=== PATIENT | female | born 1985 | race African-American/Black ===

== ENCOUNTER 2018-03-21 03:46 | Emergency (ER) | payer MEDICAID ==
[2018-03-21] MEDS ORDERED: LIDOCAINE 2% VISCOUS 15 ML UDCUP PO ONE (04:16)
[2018-03-21] MEDS ORDERED: MAG HYDROX/AL HYDROX/SIMETH 30 ML UDCUP PO ONE (04:16)
--- NOTE | 2018-03-21 04:51 | EDPHY ---
H & P Stated Complaint: Mid abd pain x3 days Time Seen by Provider: 03/21/18 04:09 HPI/ROS: Chief Complaint: Abdominal pain HPI: 32-year-old woman presenting with upper abdominal pain intermittently for the last 3 days. Patient states it is worse when she lays down. Is waking up with a bad taste in the back of her throat. Some nausea but no vomiting. No diarrhea. No dark black tarry stools or blood in her stool. No fevers or chills. She has not taken any medication for this. She does have a history of CVA in the past is on Plavix. Denies any nonsteroidal medication use. There are no aggravating or alleviating factors. ROS: 10 point Review of Systems is negative except as noted in the HPI. PMH: CVA Social History: No smoking, no alcohol, no recreational drug use Family History: non-contributory Physical Exam: Gen: Awake, Alert, No Distress HEENT: Nose: no rhinorrhea Eyes: PERRLA, EOMI Mouth: Moist mucosa Neck: Supple, no JVD Chest: nontender, lungs clear to auscultation Heart: S1, S2 normal, no murmur Abd: Soft, mild epigastric tenderness, no right upper quadrant tenderness, no lower abdominal tenderness, no guarding Back: no CVA tenderness, no midline tenderness Ext: no edema, non-tender Skin: no rash Neuro: CN II-XII intact, Sensation grossly intact, Strength 5/5 in bilateral upper and lower extremities - Personal History LMP (Females 10-55): 8-14 Days Ago Current Tetanus Diphtheria and Acellular Pertussis (TDAP): No - Medical/Surgical History Hx Asthma: No Hx Chronic Respiratory Disease: No Hx Diabetes: No Hx Cardiac Disease: No Hx Renal Disease: No Hx Cirrhosis: No Hx Alcoholism: No Hx HIV/AIDS: No Hx Splenectomy or Spleen Trauma: No Other PMH: CVA 2012 (R hand weakness) - Social History Smoking Status: Light smoker Constitutional: Initial Vital Signs Temperature (C) 36.6 C 03/21/18 03:50 Heart Rate 81 03/21/18 03:50 Respiratory Rate 19 03/21/18 03:50 Blood Pressure 114/61 03/21/18 03:50 O2 Sat (%) 97 03/21/18 03:50 O2 Delivery Mode Room Air Allergies/Adverse Reactions: Penicillins Allergy (Verified 03/21/18 03:50) Medical Decision Making ED Course/Re-evaluation: 32-year-old woman presenting with symptoms consistent with GERD. Will give her a GI cocktail here and reassess. The pain has resolved after GI cocktail. Repeat exam reveals a soft benign nontender abdomen. Will discharge with recommendations for [id number] antacids such as famotidine. She will follow up with primary care physician, return for any concerns. No evidence of acute intra-abdominal infection, surgical process, or obstruction. - Data Points Medications Given: Discontinued Medications Al Hydroxide/Mg Hydroxide (Maalox Susp) 30 ml PO ONCE ONE Stop: 03/21/18 04:17 Last Admin: 03/21/18 04:19 Dose: 30 ml Lidocaine (Lidocaine 2% Viscous) 15 ml PO ONCE ONE Stop: 03/21/18 04:17 Last Admin: 03/21/18 04:19 Dose: 15 ml Departure - Departure Disposition: Home, Routine, Self-Care Clinical Impression: GERD (gastroesophageal reflux disease) Condition: Good Instructions: Gastroesophageal Reflux Disease (ED) Additional Instructions: I recommend you start taking Pepcid (available [id number]) as needed per package instructions for your reflux symptoms. Follow up with primary care physician in 2-3 days for further evaluation. Return to the emergency department for increasing abdominal pain, nausea vomiting, dark black bowel movements, fevers or chills, or any other concerns. Referrals: NONE *PRIMARY CARE P,. [Primary Care Provider] - As per Instructions
[2018-03-21 05:00] VITALS: BP 132/79
== END 2018-03-21 05:30 | disposition home or self-care (01) ==
DX: K21.9 Gastro-esophageal reflux disease without esophagitis (principal); F17.200 Nicotine dependence, unspecified, uncomplicated; Z86.73 Personal history of transient ischemic attack (TIA), and cerebral infarction without residual deficits

== ENCOUNTER 2018-04-11 | Emergency (ER) | payer MEDICAID | END 2018-04-12 02:20 | disposition home or self-care (01) ==

== ENCOUNTER 2018-04-22 22:59 | Emergency (ER) | payer MEDICAID, OTHER ==
--- NOTE | 2018-04-22 23:35 | EDPHY ---
H & P Stated Complaint: WANTS TO TALK TO A MENTAL HEALTH WORKER, DENIES SI-HI Source: Patient, EMS Exam Limitations: No limitations - Personal History Current Tetanus/Diphtheria Vaccine: Yes Current Tetanus Diphtheria and Acellular Pertussis (TDAP): Yes - Medical/Surgical History Hx Asthma: No Hx Chronic Respiratory Disease: No Hx Diabetes: No Hx Cardiac Disease: No Hx Renal Disease: No Hx Cirrhosis: No Hx Alcoholism: No Hx HIV/AIDS: No Hx Splenectomy or Spleen Trauma: No Other PMH: CVA 2012 (R hand weakness) - Social History Smoking Status: Light smoker Time Seen by Provider: 04/22/18 23:33 HPI/ROS: HPI The patient presents brought in by ambulance asking for a mental health evaluation because she does not feel like herself. She was found outside of a [employer] store after calling 911. She complains that she generally is feeling badly which she attributes to a new medication she was prescribed while at [facility], Seroquel. She was seen in the emergency department on April 13. She was on an M1 hold at that time and was sent to [facility] where she spent 1 week and was released 3 days ago to [facility]. She actually has not been taking her Seroquel regularly since then and is concerned that it is making her worse. She is compliant with her Zoloft. She says that she is having auditory hallucinations, hearing voices that speaking garbled tones. She does admit to marijuana use over the last several days. She says she is compliant with her other medications. She denies any SI or HI. She continues to feel that her ex Partners girlfriend is out after her. REVIEW OF SYSTEMS Constitutional: No fever, no chills. Eyes: No discharge. ENT: No sore throat. Cardiovascular: No chest pain, no palpitations. Respiratory: No cough, no shortness of breath. Gastrointestinal: No abdominal pain, no vomiting. Genitourinary: No hematuria. Musculoskeletal: No back pain. Skin: No rashes. Neurological: No headache. PMHx: History of CVA on Plavix with residual right-sided weakness, schizophrenia per report Soc Hx: Staying at [facility] currently, admits to marijuana use PHYSICAL General Appearance: Alert, no distress Eyes: Pupils equal and round no pallor or injection ENT, Mouth: Mucous membranes moist Respiratory: There are no retractions, lungs are clear to auscultation Cardiovascular: Regular rate and rhythm Gastrointestinal: Abdomen is soft and non-tender, no masses, bowel sounds normal Neurological: A&O, moves all extremities Skin: Warm and dry, no rashes Musculoskeletal: Neck is supple non tender Extremities: symmetrical, right wrist is an Psychiatric: Patient is oriented X 3, there is no agitation (Suzie Jin) Constitutional: Initial Vital Signs Temperature (C) 36.8 C 04/22/18 23:00 Heart Rate 88 04/22/18 23:00 Respiratory Rate 16 04/22/18 23:00 Blood Pressure 111/67 04/22/18 23:00 O2 Sat (%) 95 04/22/18 23:00 O2 Delivery Mode Room Air Allergies/Adverse Reactions: ciprofloxacin [From Cipro] Allergy (Verified 04/23/18 16:44) Penicillins Allergy (Verified 04/23/18 16:44) Home Medications: Medication Instructions Recorded Sertraline HCl [Zoloft 100mg (*)] 200 mg PO DAILY 04/22/18 Clopidogrel Bisulfate [Clopidogrel] 75 mg PO DAILY 04/23/18 Gabapentin [Neurontin 300 MG (*)] 300 mg PO BID 04/23/18 Ibuprofen [Motrin (*)] 800 mg PO Q6H PRN 04/23/18 traZODone [traZODONE 100MG (*)] 100 mg PO HS 04/23/18 Medical Decision Making Differential Diagnosis: 32-year-old female with reported schizophrenia presents 3 days after discharge from [facility] with auditory hallucinations, delusions, generally not feeling herself, called 911 outside of a convenience store asking for help. She denies any SI or H I. She is having delusions. She believes that the Seroquel she was prescribed is making her worse. Unclear how close she is to her baseline. I will not place her on a mental health hold at this point. She is willing to stay here for voluntary evaluation in the morning. Plan to check basic labs. Labs were checked and did reveal mild alcohol intoxication and urine toxicology positive for marijuana. She has stable anemia. She will be medically cleared in the morning from her alcohol and will be able to be evaluated. At 7:00 a.m., the case will be signed out to the oncoming provider Dr. Eagle. (Suzie Jin) 3:45 p.m. the patient has been accepted to [address] [place] [address] Thompson. We will complete transfer paperwork. (Konstantin Regan) - Data Points Laboratory Results: Laboratory Results 04/22/18 23:33 04/22/18 23:33 Medications Given: Discontinued Medications Clopidogrel Bisulfate (Plavix) 75 mg PO EDNOW ONE Stop: 04/23/18 13:05 Last Admin: 04/23/18 13:18 Dose: 75 mg Gabapentin (Neurontin) 300 mg PO EDNOW ONE Stop: 04/23/18 13:05 Last Admin: 04/23/18 13:18 Dose: 300 mg Departure - Departure Disposition: [facility] IP Clinical Impression: Auditory hallucinations Condition: Fair Referrals: NONE *PRIMARY CARE P,. [Primary Care Provider] - As per Instructions
[2018-04-22 23:54] LABS: PLATELET COUNT 381 10^3/uL (150-400)
[2018-04-23] MEDS ORDERED: GABAPENTIN 300 MG CAP PO ONE (13:04)
[2018-04-23] MEDS ORDERED: CLOPIDOGREL BISULFATE 75 MG TAB PO ONE (13:04)
[2018-04-23 16:30] VITALS: BP 108/75
[2018-04-23] MEDS ORDERED: ACETAMINOPHEN 500 MG TAB ONE (16:48)
--- NOTE | 2018-04-23 16:59 | ASMTTCLDSP ---
TLC Discharge Disposition Disposition: Answers: Admit Disposition Notes: Notes: IN CONSULTATION WITH [facility] ED PHYSICIAN, JEFFERSON PINEDA MD AND ON-CALL [facility] METAL MACHINE OPERATOR, LEROY DOAN, BOTH CONCURRED THAT PT APPEARS TO MEET 27-65 CRITERIA REQUIRING PSYCHIATRIC HOSPITALIZATION PT APPEARS TO BE AN IMMINENT RISK OF HARM TO SELF/OTHERS/GRAVELY DISABLED DUE TO A MENTAL ILLNESS CONDITION. PT WAS GIVEN THE 3N PROHIBITED BELONGINGS LIST WHILE IN THE ED. Was patient given the Answers: Yes Inpatient Behavioral Health Prohibited Belongings List while in the ED? For inpatient Leroy Doan APN admission, the following psychiatrist agreed to accept patient for admission to Behavioral Health ([facility]): Type of Hold: Answers: M1/72-hour Hold Hold initiated by: Answers: Other Notes: [facility] Geometry Teacher Date Signed: 04/23/2018 04:59 PM Electronically Signed By:Josselyn Han
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
== END 2018-04-23 17:29 ==
LOC: EDUNIT#
DX: R44.0 Auditory hallucinations (principal); F17.200 Nicotine dependence, unspecified, uncomplicated
CPT/HCPCS: 80305; G0480

== ENCOUNTER 2018-05-04 20:18 | Emergency (ER) | payer MEDICAID ==
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
[2018-05-04] MEDS ORDERED: IBUPROFEN 800 MG TAB PO ONE (21:06)
[2018-05-04 22:22] VITALS: BP 101/53
== END 2018-05-04 22:48 | disposition home or self-care (01) ==
LOC: EDUNIT#
DX: N63.24 Unspecified lump in the left breast, lower inner quadrant (principal); Z80.3 Family history of malignant neoplasm of breast; F17.200 Nicotine dependence, unspecified, uncomplicated; Z59.0 Homelessness

== ENCOUNTER 2018-05-12 21:18 | Emergency (ER) | payer MEDICAID ==
--- NOTE | 2018-05-12 21:31 | EDPHY ---
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) - Social History Smoking Status: Heavy smoker Constitutional: Initial Vital Signs Temperature (C) 37 C 05/12/18 21:41 Heart Rate 76 05/12/18 21:41 Respiratory Rate 16 05/12/18 21:41 Blood Pressure 132/72 H 05/12/18 21:41 O2 Sat (%) 96 05/12/18 21:41 O2 Delivery Mode Room Air Allergies/Adverse Reactions: ciprofloxacin [From Cipro] Allergy (Verified 05/04/18 20:42) Penicillins Allergy (Verified 05/04/18 20:42) Home Medications: Medication Instructions Recorded Sertraline HCl [Zoloft 100mg (*)] 200 mg PO DAILY 04/22/18 Clopidogrel Bisulfate [Clopidogrel] 75 mg PO DAILY 04/23/18 traZODone [traZODONE 100MG (*)] 100 mg PO HS 04/23/18 Acetaminophen [Tylenol 325mg (*)] 650 mg PO Q4HRS PRN tab 04/26/18 Albuterol [Proventil Inhaler HFA 2 puffs IH Q4HRS PRN mdi 04/26/18 (*)] Ibuprofen [Motrin (*)] 400 mg PO Q6HRS PRN tab 04/26/18 OLANZapine [OLANZapine (*)] 5 mg PO HS 30 Days #30 tab 04/26/18 Medical Decision Making ED Course/Re-evaluation: CHIEF COMPLAINT: Chest pain HISTORY OF PRESENT ILLNESS: This patient is a 32 year old female arriving via EMS who presents following an episode of chest pain, now resolved. Her symptoms occurred after she took a workout supplement that contained creatine and niacin. She endorses rapid heart rate, chest pressure, and flushing. These symptoms have now completely resolved. She currently feels well. She denies fever, shortness of breath, nausea, vomiting, or other associated symptoms. REVIEW OF SYSTEMS: A comprehensive 10 system review of systems is otherwise negative aside from elements mentioned in the history of present illness and medical decision making. PHYSICAL EXAM: HR, BP, O2 Sat, RR. Temp noted General Appearance: Alert, well hydrated, appropriate, and non-toxic appearing. Head: Atraumatic without scalp tenderness or obvious injury Eyes: Pupils equal, round, reactive to light and accommodation, EOMI, no trauma , no injection. Ears: Clear bilaterally, no perforation, normal landmarks Nose: Atraumatic, no rhinorrhea, clear. Throat: There is no erythema or exudates, no lesions, normal tonsils, mucus membranes moist. Neck: Supple, nontender, no lymphadenopathy. Respiratory: No retractions, no distress, no wheezes, and no accessory muscle use. Lungs are clear to auscultation bilaterally. Cardiovascular: Regular rate and rhythm, no murmurs, rubs, or gallops. Good capillary refill all extremities. Gastrointestinal: Abdomen is soft, nontender, non-distended, no masses. Musculoskeletal: Normal active ROM of all extremities, atraumatic. Neurological: Alert, appropriate, and interactive. Nonfocal exam. Skin: No rashes, good turgor, no nodules on palpation. Past medical history: History of CVA. Past surgical history: Noncontributory Family history: Noncontributory. Social history: Transient. Lives in [place]. Single. DIFFERENTIAL DIAGNOSIS: The differential diagnosis for the patient's chest pain included but was not limited to medication side effect, myocardial ischemia, pulmonary embolus, chest wall pain, pleural inflammation, and pulmonary infectious causes. MEDICAL DECISION MAKIN32 y/o female presents following an episode of chest pain, now resolved, associated with consuming a workout supplement which contains niacin. She is now completely asymptomatic. Plan for I-stat chemistries, troponin. The patient was recently evaluated 05/04/18 here in this emergency department for a recurrent left breast mass. She was recommended to follow up with a surgeon to determine if this is fibroadenoma vs. a malignant mass. It does not appear that she has followed up regarding this. I stressed the importance of consultation with a surgeon and further evaluation of this to rule out malignancy. We will provide an additional referral to general surgery today. 21:54 Reviewed labs. These are completely unremarkable. Troponin negative. Reassessed. Discussed laboratory results. Again, I have provided a referral for her to follow up regarding her breast mass. Plan to discharge patient home in good condition. Follow up and return precautions discussed. She is comfortable with this plan. Departure - Departure Disposition: Home, Routine, Self-Care Clinical Impression: Medication reaction Qualifiers: Encounter type: initial encounter Qualified Code(s): T50.905A - Adverse effect of unspecified drugs, medicaments and biological substances, initial encounter Condition: Good Instructions: Additional Information, Breast Mass (ED) Additional Instructions: Your symptoms today were likely due to a medication reaction from niacin. It is common for this to cause a rapid heart rate and flushing. Return to the Emergency Department for fever, increasing chest pain, shortness of breath, or other worsening of condition. It is very important to follow up with a surgeon regarding your breast mass that was found on ultrasound at your prior visit. Please follow up with our surgeon stone finisher for further evaluation as we discussed. Referrals: [facility],. [Clinic] - As per Instructions Kj Desai MD [Medical Doctor] - As per Instructions Report Scribed for: Govind Eagle Report Scribed by: Lyndsay Reese Date of Report: 05/12/18 Time of Report: 21:33
[2018-05-12 22:14] VITALS: BP 135/75
== END 2018-05-12 22:18 | disposition home or self-care (01) ==
LOC: EDUNIT#
DX: T50.905A Adverse effect of unspecified drugs, medicaments and biological substances, initial encounter (principal); F17.200 Nicotine dependence, unspecified, uncomplicated
CPT/HCPCS: 82435-PO; 82565-PO; 82947-PO; 84132-PO; 84295-PO; 84484-PO; 84520-PO; 85014-PO

== ENCOUNTER 2018-05-14 21:02 | Emergency (ER) | payer MEDICAID ==
--- NOTE | 2018-05-14 21:37 | EDPHY ---
H & P Time Seen by Provider: 05/14/18 21:37 HPI/ROS: CHIEF COMPLAINT: Abdominal pain HISTORY OF PRESENT ILLNESS: Patient is a 32-year-old female well known to this emergency room for multiple visits for abdominal pain and psychiatric related complaints. Today she complains of 3 days of abdominal pain. She denies any vomiting or diarrhea. She states her abdominal pain is generalized. She denies any fever or chills. She has no change in appetite. She has noticed no change in the color of her stools. REVIEW OF SYSTEMS: Constitutional: No fever, no chills. Eyes: No discharge. ENT: No sore throat. Cardiovascular: No chest pain, no palpitations. Respiratory: No cough, no shortness of breath. Gastrointestinal: + abdominal pain, no vomiting. Genitourinary: No hematuria. Musculoskeletal: No back pain. Skin: No rashes. Neurological: No headache. Smoking Status: Heavy smoker Physical Exam: General Appearance: Alert and no distress. Eyes: Pupils equal and round no injection. Respiratory: Chest is nontender, lungs are clear to auscultation. Cardiac: regular rate and rhythm. Gastrointestinal: Abdomen is soft and nontender, no masses, bowel sounds normal. Musculoskeletal: Neck is supple and nontender. Extremities have full range of motion and are nontender. Skin: No rashes or lesions. Constitutional: Initial Vital Signs Temperature (C) 36.7 C 05/14/18 21:09 Heart Rate 84 05/14/18 21:09 Respiratory Rate 16 05/14/18 21:09 Blood Pressure 113/66 05/14/18 21:09 O2 Sat (%) 97 05/14/18 21:09 O2 Delivery Mode Room Air Allergies/Adverse Reactions: ciprofloxacin [From Cipro] Allergy (Verified 05/14/18 21:09) Penicillins Allergy (Verified 05/14/18 21:09) Home Medications: Medication Instructions Recorded Sertraline HCl [Zoloft 100mg (*)] 200 mg PO DAILY 04/22/18 Clopidogrel Bisulfate [Clopidogrel] 75 mg PO DAILY 04/23/18 traZODone [traZODONE 100MG (*)] 100 mg PO HS 04/23/18 Acetaminophen [Tylenol 325mg (*)] 650 mg PO Q4HRS PRN tab 04/26/18 Albuterol [Proventil Inhaler HFA 2 puffs IH Q4HRS PRN mdi 04/26/18 (*)] Ibuprofen [Motrin (*)] 400 mg PO Q6HRS PRN tab 04/26/18 OLANZapine [OLANZapine (*)] 5 mg PO HS 30 Days #30 tab 04/26/18 Medical Decision Making ED Course/Re-evaluation: 32-year-old female here with 3 days of abdominal pain. Vital signs are all within normal limits. Labs reveal no leukocytosis, transaminitis, abnormalities of to total bilirubin or other changes in her metabolic panel. Exam reveals a nontender nondistended soft abdomen. Patient does feel improved after oral pain control in the emergency room feels comfortable being discharged home. I did consider cholecystitis, pancreatitis, UTI, pyelonephritis, appendicitis. - Data Points Laboratory Results: Laboratory Results 05/14/18 21:02 05/14/18 21:02 05/14/18 05/14/18 05/14/18 21:10 21:10 21:02 WBC RBC Hgb Hct MCV MCH MCHC RDW Plt Count MPV Neut % (Auto) Lymph % (Auto) Foard % (Auto) Eos % (Auto) Baso % (Auto) Nucleat RBC Rel Count Absolute Neuts (auto) Absolute Lymphs (auto) Absolute Monos (auto) Absolute Eos (auto) Absolute Basos (auto) Absolute Nucleated RBC Immature Gran % Immature Gran # Sodium 144 mEq/L mEq/L (135-145) Potassium 3.9 mEq/L mEq/L (3.3-5.0) Chloride 106 mEq/L mEq/L (97-110) Carbon Dioxide 25 mEq/l mEq/l (22-31) Anion Gap 13 mEq/L mEq/L (8-16) BUN 3 mg/dL L mg/dL (7-23) Creatinine 0.5 mg/dL L mg/dL (0.6-1.0) Estimated GFR > 60 Glucose 64 mg/dL L mg/dL (70-100) Calcium 9.8 mg/dL mg/dL (8.5-10.4) Total Bilirubin 0.2 mg/dL mg/dL (0.1-1.4) AST 35 IU/L IU/L (14-46) ALT 43 IU/L IU/L (9-52) Alkaline Phosphatase 75 IU/L IU/L (38-126) Total Protein 8.1 g/dL g/dL (6.3-8.2) Albumin 4.5 g/dL g/dL (3.5-5.0) Lipase 19 IU/L L IU/L (23-300) Urine Color PALE YELLOW Urine Appearance CLEAR Urine pH 6.0 (5.0-7.5) Ur Specific [place] 1.002 (1.002-1.030) Urine Protein NEGATIVE (NEGATIVE) Urine Ketones NEGATIVE (NEGATIVE) Urine Blood NEGATIVE (NEGATIVE) Urine Nitrate NEGATIVE (NEGATIVE) Urine Bilirubin NEGATIVE (NEGATIVE) Urine Urobilinogen NEGATIVE EU EU (0.2-1.0) Ur Leukocyte Esterase NEGATIVE (NEGATIVE) Urine Glucose NEGATIVE (NEGATIVE) Urine Test NEGATIVE 05/14/18 21:02 WBC 6.42 10^3/uL 10^3/uL (3.80-9.50) RBC 4.81 10^6/uL 10^6/uL (4.18-5.33) Hgb 12.5 g/dL L g/dL (12.6-16.3) Hct 35.6 % L % (38.0-47.0) MCV 74.0 fL L fL (81.5-99.8) MCH 26.0 pg L pg (27.9-34.1) MCHC 35.1 g/dL g/dL (32.4-36.7) RDW 18.6 % H % (11.5-15.2) Plt Count 357 10^3/uL 10^3/uL (150-400) MPV 10.0 fL fL (8.7-11.7) Neut % (Auto) 43.3 % % (39.3-74.2) Lymph % (Auto) 47.8 % H % (15.0-45.0) Foard % (Auto) 7.0 % % (4.5-13.0) Eos % (Auto) 1.4 % % (0.6-7.6) Baso % (Auto) 0.3 % % (0.3-1.7) Nucleat RBC Rel Count 0.0 % % (0.0-0.2) Absolute Neuts (auto) 2.78 10^3/uL 10^3/uL (1.70-6.50) Absolute Lymphs (auto) 3.07 10^3/uL H 10^3/uL (1.00-3.00) Absolute Monos (auto) 0.45 10^3/uL 10^3/uL (0.30-0.80) Absolute Eos (auto) 0.09 10^3/uL 10^3/uL (0.03-0.40) Absolute Basos (auto) 0.02 10^3/uL 10^3/uL (0.02-0.10) Absolute Nucleated RBC 0.00 10^3/uL 10^3/uL (0-0.01) Immature Gran % 0.2 % % (0.0-1.1) Immature Gran # 0.01 10^3/uL 10^3/uL (0.00-0.10) Sodium Potassium Chloride Carbon Dioxide Anion Gap BUN Creatinine Estimated GFR Glucose Calcium Total Bilirubin AST ALT Alkaline Phosphatase Total Protein Albumin Lipase Urine Color Urine Appearance Urine pH Ur Specific [place] Urine Protein Urine Ketones Urine Blood Urine Nitrate Urine Bilirubin Urine Urobilinogen Ur Leukocyte Esterase Urine Glucose Urine Test Medications Given: Discontinued Medications Hydrocodone Bitart/Acetaminophen ([place] 5/325) 1 tab PO EDNOW ONE Stop: 05/14/18 22:25 Last Admin: 05/14/18 22:30 Dose: 1 tab Dicyclomine HCl (Bentyl) 20 mg PO EDNOW ONE Stop: 05/14/18 22:26 Last Admin: 05/14/18 22:30 Dose: 20 mg Diphenhydramine HCl (Benadryl) 50 mg PO EDNOW ONE Stop: 05/14/18 22:25 Last Admin: 05/14/18 22:47 Dose: Not Given Departure - Departure Disposition: Home, Routine, Self-Care Clinical Impression: Abdominal pain Condition: Good Instructions: Acute Abdominal Pain (ED) Referrals: NONE *PRIMARY CARE P,. [Primary Care Provider] - As per Instructions
[2018-05-14 21:48] LABS: PLATELET COUNT 357 10^3/uL (150-400)
[2018-05-14] MEDS ORDERED: HYDROCODONE/APAP 5/325 TAB PO ONE (22:24)
[2018-05-14] MEDS ORDERED: diphenhydrAMINE 25 MG CAP PO ONE (22:24)
[2018-05-14] MEDS ORDERED: DICYCLOMINE 10 MG CAP PO ONE (22:25)
[2018-05-14 23:19] VITALS: BP 132/73
== END 2018-05-14 23:19 | disposition home or self-care (01) ==
LOC: EDUNIT#
DX: R10.84 Generalized abdominal pain (principal)

== ENCOUNTER 2018-06-14 18:24 | Emergency (ER) | payer MEDICAID ==
--- NOTE | 2018-06-14 18:39 | EDPHY ---
H & P Time Seen by Provider: 06/14/18 18:27 HPI/ROS: CHIEF COMPLAINT: Right ankle pain HISTORY OF PRESENT ILLNESS: 33-year-old female arrives via ambulance complaining of acute right ankle pain which occurred last evening when she was walking on an uneven surface and rolled her ankle. She has been able to bear weight albeit with progressive pain throughout the day. No fall from height. No calcaneal pain. No proximal tibia or fibula pain. No knee pain. No suicidal or homicidal ideation. REVIEW OF SYSTEMS: 10 systems reviewed and negative with the exception of the elements mentioned in the history of present illness PAST MEDICAL/SURGICAL HISTORY: Depression. PTSD. SOCIAL HISTORY: Homeless. Denies acute alcohol use. PHYSICAL EXAM 1) GENERAL: Well-developed, well-nourished, alert and oriented. Appears to be in no acute distress. Answering questions appropriately. 2) HEAD: Normocephalic, atraumatic 3) HEENT: Pupils equal, round, reactive to light bilaterally. Negative Horners. Nasopharynx, oropharynx, clear. No deformity or angulation of nose. No septal hematoma. No rhinorrhea. No oral trauma. Ears bilaterally with normal tympanic membranes. No hemotympanum. No fluid or blood in the external auditory canal. No raccoon eyes. No Rodriguez sign. Teeth are normally aligned with no gross malocclusion, TMJ bilaterally nontender, facial bones nontender including the zygomatic arch, maxilla mandible. 4) NECK: No cervical collar is on. Posterior cervical spine is nontender, no stepoff, no effusion. Full range of motion which does not elicit any midline cervical spine pain, no posterior midline tenderness, no step-off. 5) LUNGS: Clear to auscultation bilaterally, no wheezes, no rhonchi, no retractions. No obvious signs of trauma. No chest wall pain. No flaring, no grunting. Moving symmetrically. No crepitus. 6) HEART: [Regular rate and rhythm, 7) ABDOMEN: No guarding, no rebound, no focal tenderness, no peritoneal signs, no signs of trauma, no ecchymosis 8) MUSCULOSKELETAL: Right lower extremity: Tender to palpation lateral malleolus, tender to palpation 5th metatarsal. Mild soft tissue swelling however no No visible deformity. No proximal tibia or fibula pain. DP PT pulses present and brisk. Soft compartments. 9) BACK: No midline vertebral tenderness, no fluctuance, no step-off, no obvious trauma, no visual or palpable abnormality. 10) SKIN: No laceration. 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) - Social History Smoking Status: Heavy smoker Constitutional: Initial Vital Signs Temperature (C) 36.4 C 06/14/18 18:24 Heart Rate 88 06/14/18 18:24 Respiratory Rate 16 06/14/18 18:24 Blood Pressure 146/85 H 06/14/18 18:24 O2 Sat (%) 96 06/14/18 18:24 O2 Delivery Mode Room Air Allergies/Adverse Reactions: ciprofloxacin [From Cipro] Allergy (Verified 05/14/18 21:09) Penicillins Allergy (Verified 05/14/18 21:09) Home Medications: Medication Instructions Recorded Sertraline HCl [Zoloft 100mg (*)] 200 mg PO DAILY 04/22/18 Clopidogrel Bisulfate [Clopidogrel] 75 mg PO DAILY 04/23/18 traZODone [traZODONE 100MG (*)] 100 mg PO HS 04/23/18 Acetaminophen [Tylenol 325mg (*)] 650 mg PO Q4HRS PRN tab 04/26/18 Albuterol [Proventil Inhaler HFA 2 puffs IH Q4HRS PRN mdi 04/26/18 (*)] Ibuprofen [Motrin (*)] 400 mg PO Q6HRS PRN tab 04/26/18 OLANZapine [OLANZapine (*)] 5 mg PO HS 30 Days #30 tab 04/26/18 Medical Decision Making ED Course/Re-evaluation: 7:25 p.m.: Re-evaluation. Discussed her imaging results showing no definitive fracture, no periprosthetic fracture or definitive loosening or fracture hardware. She is neurovascular intact no evidence of compartment syndrome. Plan will be discharge with [facility] and follow up with Orthopedics. Offered crutches however because she is pulling her suitcase she declines this. I saw this patient independently based on established practice protocols. Care of patient under supervision of secondary supervising physician Dr Nunze. Departure - Departure Disposition: Home, Routine, Self-Care Clinical Impression: Right ankle sprain Qualifiers: Encounter type: initial encounter Involved ligament of ankle: unspecified ligament Qualified Code(s): S93.401A - Sprain of unspecified ligament of right ankle, initial encounter Right foot sprain Qualifiers: Encounter type: initial encounter Qualified Code(s): S93.601A - Unspecified sprain of right foot, initial encounter Condition: Good Instructions: Ankle Sprain (ED), Foot Sprain (ED) Additional Instructions: Return to the ER immediately if you experience discoloration, have worsening pain, numbness, tingling, or any other symptoms that concern you. If you received x-rays in the emergency department today, be advised, that ligamentous , tendon, muscular, and other non-bony injury cannot be fully ruled out. Try to keep your affected extremity elevated above the level of your chest, and keep cold packs on the affected area, for the next 48 hours. Referrals: Shai Fung MD [Medical Doctor] - 1-2 days without fail
[2018-06-14] MEDS ORDERED: IBUPROFEN 600 MG TAB PO ONE (19:45)
[2018-06-14 19:52] VITALS: BP 128/79
== END 2018-06-14 19:51 | disposition home or self-care (01) ==
LOC: EDUNIT#
DX: S93.401A Sprain of unspecified ligament of right ankle, initial encounter (principal); S93.601A Unspecified sprain of right foot, initial encounter; X50.0XXA Overexertion from strenuous movement or load, initial encounter; Y93.01 Activity, walking, marching and hiking; Y99.8 Other external cause status; Z87.81 Personal history of (healed) traumatic fracture; Z98.1 Arthrodesis status; Z59.0 Homelessness
CPT/HCPCS: L4386

== ENCOUNTER 2018-08-22 19:47 | Emergency (ER) | payer MEDICAID ==
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
[2018-08-22 19:57] VITALS: BP 115/74
[2018-08-22] MEDS ORDERED: ONDANSETRON 4MG PREPACK#2 BTL TAKEHOME ONE (20:05)
[2018-08-22] MEDS ORDERED: IBUPROFEN 800 MG TAB PO ONE (20:05)
[2018-08-22] MEDS ORDERED: ONDANSETRON DISINTEGRATING 4 MG TAB PO ONE (20:06)
== END 2018-08-22 20:22 | disposition home or self-care (01) ==
LOC: EDUNIT#
DX: G44.209 Tension-type headache, unspecified, not intractable (principal); Z59.0 Homelessness

== ENCOUNTER 2018-09-11 03:22 | Emergency (ER) | payer MEDICAID ==
[2018-09-11] MEDS ORDERED: KETOROLAC 15 MG/1 ML SDV IVP ONE (03:33)
--- NOTE | 2018-09-11 03:36 | EDPHY ---
H & P Stated Complaint: abd pain and right leg pain Time Seen by Provider: 09/11/18 03:28 HPI/ROS: Chief Complaint: Abdominal pain, right arm pain, leg pain, back pain HPI: 33-year-old homeless woman well known to this emergency department [place] of abdominal pain, right arm pain and right leg pain. She has a history of a left-sided MCA stroke in 2013. She is not currently on any anti-platelet or anticoagulation. She states she has been having abdominal and right-sided pain intermittently for the last month or 2. She has been seen at multiple hospitals with no definitive diagnosis. She denies any cough or chest pain. No fevers or chills. No nausea vomiting or diarrhea. No dark tarry stools or blood per rectum. No fevers or chills. She normally takes Tylenol and gabapentin for the pain. She does admit to drinking alcohol today. Does use occasional marijuana. ROS: 10 systems were reviewed and were negative except those elements noted in the HPI. PMH: Left MCA CVA 2012 with residual right-sided weakness Social History: No smoking, positive alcohol, positive marijuana Family History: non-contributory Physical Exam: Gen: Awake, Alert, No Distress HEENT: Nose: no rhinorrhea Eyes: PERRLA, EOMI Mouth: Moist mucosa Neck: Supple, no JVD Chest: nontender, lungs clear to auscultation Heart: S1, S2 normal, no murmur Abd: Soft, non-tender, no guarding Back: no CVA tenderness, no midline tenderness Ext: no edema, non-tender Skin: no rash Neuro: CN II-XII intact, Sensation grossly intact, she has 5/5 left upper left lower extremity strength, right arm is held in mild contracture secondary to her prior CVA. - Personal History LMP (Females 10-55): Over 28 Days Ago Current Tetanus/Diphtheria Vaccine: Yes Current Tetanus Diphtheria and Acellular Pertussis (TDAP): Yes - Medical/Surgical History Hx Asthma: No Hx Chronic Respiratory Disease: No Hx Diabetes: No Hx Cardiac Disease: No Hx Renal Disease: No Hx Cirrhosis: No Hx Alcoholism: No Hx HIV/AIDS: No Hx Splenectomy or Spleen Trauma: No Other PMH: CVA 2012 (R hand weakness) - Social History Smoking Status: Heavy smoker Constitutional: Initial Vital Signs Temperature (C) 36.9 C 09/11/18 03:32 Heart Rate 75 09/11/18 03:32 Respiratory Rate 16 09/11/18 03:32 Blood Pressure 120/66 09/11/18 03:32 O2 Sat (%) 95 09/11/18 03:32 O2 Delivery Mode Room Air Allergies/Adverse Reactions: ciprofloxacin [From Cipro] Allergy (Verified 09/11/18 03:33) Penicillins Allergy (Verified 09/11/18 03:33) Home Medications: Medication Instructions Recorded Acetaminophen [Tylenol 325mg (*)] 650 mg PO Q4HRS PRN tab 04/26/18 Gabapentin 09/11/18 Medical Decision Making ED Course/Re-evaluation: 33-year-old woman presenting complaining of abdominal pain and right extremity pain. Abdomen is soft and benign. No rashes or lesions. She is at her neurologic baseline. Home be for laboratory evaluations, IV Toradol as she denies being on any anti-platelet agents at this time. She does admit to drinking alcohol tonight. Laboratory evaluations are unremarkable. Patient does have some anemia which is chronic for her. Abdomen is soft and benign. She is feeling improved after IV a anti-inflammatories. Will discharge with follow-up with primary care physician. She is ambulating unassisted in the emergency department. - Data Points Laboratory Results: Laboratory Results 09/11/18 03:50 09/11/18 03:50 09/11/18 09/11/18 09/11/18 03:50 03:50 03:50 WBC 8.29 10^3/uL 10^3/uL (3.80-9.50) RBC 4.74 10^6/uL 10^6/uL (4.18-5.33) Hgb 12.4 g/dL L g/dL (12.6-16.3) Hct 35.8 % L % (38.0-47.0) MCV 75.5 fL L fL (81.5-99.8) MCH 26.2 pg L pg (27.9-34.1) MCHC 34.6 g/dL g/dL (32.4-36.7) RDW 20.2 % H % (11.5-15.2) Plt Count 360 10^3/uL 10^3/uL (150-400) MPV 9.0 fL fL (8.7-11.7) Neut % (Auto) 41.7 % % (39.3-74.2) Lymph % (Auto) 46.3 % H % (15.0-45.0) Izard % (Auto) 7.7 % % (4.5-13.0) Eos % (Auto) 3.1 % % (0.6-7.6) Baso % (Auto) 1.0 % % (0.3-1.7) Nucleat RBC Rel Count 0.0 % % (0.0-0.2) Absolute Neuts (auto) 3.45 10^3/uL 10^3/uL (1.70-6.50) Absolute Lymphs (auto) 3.84 10^3/uL H 10^3/uL (1.00-3.00) Absolute Monos (auto) 0.64 10^3/uL 10^3/uL (0.30-0.80) Absolute Eos (auto) 0.26 10^3/uL 10^3/uL (0.03-0.40) Absolute Basos (auto) 0.08 10^3/uL 10^3/uL (0.02-0.10) Absolute Nucleated RBC 0.00 10^3/uL 10^3/uL (0-0.01) Immature Gran % 0.2 % % (0.0-1.1) Immature Gran # 0.02 10^3/uL 10^3/uL (0.00-0.10) Sodium 142 mEq/L mEq/L (135-145) Potassium 4.4 mEq/L mEq/L (3.5-5.2) Chloride 109 mEq/L mEq/L (97-110) Carbon Dioxide 22 mEq/l mEq/l (22-31) Anion Gap 11 mEq/L mEq/L (6-14) BUN 10 mg/dL mg/dL (7-23) Creatinine 0.5 mg/dL L mg/dL (0.6-1.0) Estimated GFR > 60 Glucose 92 mg/dL mg/dL (70-100) Calcium 9.6 mg/dL mg/dL (8.5-10.4) Total Bilirubin 0.2 mg/dL mg/dL (0.1-1.4) AST 37 IU/L IU/L (14-46) ALT 46 IU/L IU/L (9-52) Alkaline Phosphatase 71 IU/L IU/L (38-126) Total Protein 7.8 g/dL g/dL (6.3-8.2) Albumin 4.5 g/dL g/dL (3.5-5.0) Lipase 19 IU/L L IU/L (23-300) Beta HCG, Qual NEGATIVE Medications Given: Discontinued Medications Ketorolac Tromethamine (Toradol) 15 mg IVP EDNOW ONE Stop: 09/11/18 03:34 Last Admin: 09/11/18 03:51 Dose: 15 mg Departure - Departure Disposition: Home, Routine, Self-Care Clinical Impression: Abdominal pain Condition: Good Instructions: Abdominal Pain (ED) Additional Instructions: Follow up with primary care physician in 3-4 days. Return to the emergency department for uncontrolled nausea vomiting, fevers, chills, worsening pain, or any other concerns. Referrals: NONE *PRIMARY CARE P,. [Primary Care Provider] - As per Instructions
[2018-09-11 03:58] LABS: PLATELET COUNT 360 10^3/uL (150-400)
[2018-09-11 04:30] VITALS: BP 118/64
== END 2018-09-11 04:49 | disposition home or self-care (01) ==
LOC: EDUNIT#
DX: R10.9 Unspecified abdominal pain (principal); M79.601 Pain in right arm; M79.604 Pain in right leg; M54.9 Dorsalgia, unspecified; Z59.0 Homelessness; Z86.73 Personal history of transient ischemic attack (TIA), and cerebral infarction without residual deficits
CPT/HCPCS: 96374; J1885

== ENCOUNTER 2018-10-06 07:27 | Emergency (ER) | payer MEDICAID ==
[2018-10-06 07:35] VITALS: BP 136/96
--- NOTE | 2018-10-06 07:35 | EDPHY ---
HPI/HX/ROS/PE/MDM Narrative: CHIEF COMPLAINT: Generalized pain. HPI: This patient is a 33 year old female well known to this department with ten prior visits in the past year. She arrives today via EMS complaining of generalized pain all over her body. On my exam, the patient complains only of a mild headache that began this morning. She states her primary desire is to go to the crisis center to talk with her therapist. When I explained that her therapist isn't located in the ED, she states that she would like a "medicaid cab" to get there, which is why she is here. REVIEW OF SYSTEMS: A comprehensive 10 system review of systems is otherwise negative aside from elements mentioned in the history of present illness and medical decision making. PMH: Stroke, mental health issues, meth use. SOCIAL HISTORY: Single. Transient. Not currently employed. PHYSICAL EXAM: General:Patient is alert, in no acute distress. She is comfortably eating crackers. ENT:Eyes are normal to inspection. ENT inspection normal. Neck: Normal inspection. Full range of motion. Respiratory:No respiratory distress. Breath sounds normal bilaterally. Cardiovascular: Regular rate and rhythm. Strong peripheral pulses. Normal cap refill. Abdomen:The abdomen is nontender to palpation. There are no peritoneal signs. There are normal bowel sounds. Neuro: Oriented x3. Normal motor function. Normal sensory function. Psych: Denies HI/SI. Tangential. MDM: This patient presents with non-specific symptoms, and primary motivation for visit appears to be to obtain transportation to the crisis center. I see no indication for M1 hold at this time, nor sign of medical emergency. - Data Points Medications Given: Discontinued Medications Ibuprofen (Motrin) 600 mg PO EDNOW ONE Stop: 10/06/18 07:38 Last Admin: 10/06/18 07:42 Dose: 600 mg General Time Seen by Provider: 10/06/18 07:29 Initial Vital Signs: Initial Vital Signs Temperature (C) 36.9 C 10/06/18 07:31 Blood Pressure 136/96 H 10/06/18 07:31 O2 Delivery Mode Room Air Allergies/Adverse Reactions: ciprofloxacin [From Cipro] Allergy (Verified 09/11/18 03:33) Penicillins Allergy (Verified 09/11/18 03:33) Home Medications: Medication Instructions Recorded Acetaminophen [Tylenol 325mg (*)] 650 mg PO Q4HRS PRN tab 04/26/18 Gabapentin 09/11/18 Risperdal 10/06/18 Sertraline HCl [Zoloft 100mg (*)] 100 mg PO DAILY 10/06/18 Departure - Departure Disposition: Home, Routine, Self-Care Clinical Impression: Headache Condition: Good Instructions: Additional Information Additional Instructions: Follow up with your therapist at the crisis center as we discussed . Referrals: [facility],. [Clinic] - As per Instructions Report Scribed for: Keith Mario Report Scribed by: Lyndsay Reese Date of Report: 10/06/18 Time of Report: 07:34 Physician Review and Approval Statement: Portions of this note were transcribed by an ED scribe. I personally performed the history, physical exam, and medical decision making; and confirm the accuracy of the information in the transcribed note.
[2018-10-06] MEDS ORDERED: IBUPROFEN 600 MG TAB PO ONE (07:37)
== END 2018-10-06 07:57 | disposition home or self-care (01) ==
LOC: EDUNIT#
DX: R51 Headache (principal)